=== PATIENT | male | born 1985 | race Caucasian/White ===

== ENCOUNTER 2018-04-12 10:13 | Emergency (ER) | payer SELFPAY ==
[~2018-04-12] VITALS: Ht 177.8 cm; Wt 70.5 kg
[2018-04-12 10:16] VITALS: Ht 177.8 cm; Wt 70.5 kg
[2018-04-12] MEDS ORDERED: HYDROCODON-ACE1 EAC7 PO (10:18)
[2018-04-12] MEDS ORDERED: VOLTAREN75 MG PO (11:04)
[2018-04-12] MEDS ORDERED: TYLENOL W/CODEI1 TAB PO (11:04)
[2018-04-12 11:30] VITALS: BP 117/84
== END 2018-04-12 11:25 | disposition home or self-care (01) ==
LOC: D.ER 10:13
DX: S92.325G Nondisplaced fracture of second metatarsal bone, left foot, subsequent encounter for fracture with delayed healing (principal); S92.335G Nondisplaced fracture of third metatarsal bone, left foot, subsequent encounter for fracture with delayed healing; X58.XXXD Exposure to other specified factors, subsequent encounter